=== PATIENT | female | born 2005 | race Caucasian/White ===

== ENCOUNTER 2025-08-23 | Outpatient (REF) | payer SELFPAY ==
--- OUTSIDE RECORDS SUMMARY | 2025-08-23 09:00 | XMS_ITS | Encounter Summary ---
Author Organization [employer] Address [address] [facility] 7t [place] [address] Care Team Providers Care Rampman Name Role Phone Mariaa Pena MD Primary Care Pro vider Reason for Visit * Reason Comments pap Encounter Details Date Type Department Care Team (Latest Contact Info) Description 08/23/2025 9:00 AM EDT Procedure Visit [facility] MED[facility]INE [address] [place], [place] [phone] Sangeeta Bueno CNM [address] [place] [address] Cervical cancer screening (Primary Dx); Encntr screen for infections w sexl mode of transmiss; Family planning counseling Social History Tobacco Use Types Packs/Day Years Used Date Smoking Tobacco: Never Passive Smoke Exposure: Never Smokeless Tobacco: Never Tobacco Cessation:Counseling Given: Not Answered Alcohol Use Standard Drinks/Week Comments Not Currently 0 (1 standard drink = 0.6 oz pur e alcohol) social Depression Answer Date Recorded Patient Health Questionnaire-9 Score 15 08/03/2025 Patient Health Questionnaire-9 Score 15 08/03/2025 Last PHQ-9: Questionnaire Data Not on file 1 Housing Stability Answer Date Recorded What is your housing situation today? I have katey bita 08/03/[address] you li ve. Do you have problems with any of the following? None of the above 08/03/2025 Food Insecurity Answer Date Recorded Within the past 12 months, y ou worried that your food would run out before you got money to buy more: Never True 08/03/2025 Within the past 12 months,th e food you bought just didn't last and you didn't have enough money to get more: Never True 06/2025 Utilities Answer Date Recorded In the past 12 months, has t he electric, gas, oil or water company threatened to shut off services in your home? No 08/03/2025 Depression Answer Date Recorded Patient Health Questionnaire-2 Score 4 08/03/2025 Internet Access Answer Date Recorded Internet Access Q1 Yes 08/03/2025 Internet Access Q2 Not on file 08/03/2025 Comments Unknown Intention Date Recorded No desire to become (finding) 1 Sex and Gender Information Value Date Recorded Sex Assigned at Female 08/02/2025 12:40 PM EDT Legal Sex Female 2:53 PM EDT Gender Identity Female 08/02/2025 12:40 PM EDT Sexual Orientation Straight 08/03/2025 2: 45 PM EDT documented as of this encounter Last Filed Vital Signs Vital Sign Reading Time Taken Comments Blood Pressure 128/80 08/23/2025 9:16 AM EDT Pulse 79 08/23/2025 9:16 AM EDT Temperature 36.7 C (98 F) 08/23/2025 9:16 AM EDT Respiratory Rate 16 08/23/2025 9:16 AM EDT Oxygen Saturation 98% 08/23/2025 9:16 AM EDT Inhaled Oxygen Concentration - - Weight 83.3 kg (183 lb 9.6 oz) 08/23/2025 9:16 A M EDT Height - - Body Mass Index 32.01 08/03/2025 2:21 PM EDT documented in this encounter Progress Notes * Sangeeta Bueno CNM - 08/23/2025 9:00 AM EDT Subjective Patient ID: Sharmila Ludwig is a 20 y.o. female who presents for pap Here for initial pap and control counseling. STI labs ordered by PCP. Never started oral contraceptive pill. Not planning in the next year, would like to discuss IUD. LMP 08/07. Last sexually active without a condom 7 days ago. 1 AMAB partner x 2y, no safety concerns. Monthly menses x 4-4d. Occasionally heavy, occasional cramps a day or so prior to menses. Responds to OTC meds, doesn't miss work or social events because of pain. Received HPV and HBV vaccine series. Review of Systems Genitourinary: Negative for dyspareunia, dysuria, frequency, genital sores, hematuria, menstrual problem, pelvic pain, urgency, vaginal bleeding, vaginal discharge and vaginal pain. No abnormal bleeding, no breast pain, no breast mass, no nipple discharge Objective BP 128/80 (BP Location: Left arm, Patient Position: Sitting, BP Cuff Size: Adult) Pulse 79 Temp98 ??F (36.7 ??C) (Oral) Resp 16 Wt 183 lb 9.6 oz (83.3 kg) LMP 08/07/2025 (Exact Date) SpO2 98% BMI 32.01 kg/m?? Physical Exam Manager Pharmacy present: declines contact center specialist. Constitutional: Appearance: Normal appearance. Genitourinary: General: Normal vulva. Labia: Right: No rash, tenderness, lesion or injury. Left: No rash, tenderness, lesion or injury. Vagina: Normal. No signs of injury and foreign body. No vaginal discharge, erythema, tenderness, bleeding or lesions. Cervix: No cervical motion tenderness, discharge, friability, lesion, erythema, cervical bleeding or eversion. Uterus: Normal. Not enlarged and not tender. Adnexa: Right adnexa normal and left adnexa normal. Right: No mass, tenderness or fullness. Left: No mass, tenderness or fullness. Neurological: Mental Status: She is alert. Psychiatric: Mood and Affect: Mood normal. Behavior: Behavior normal. Assessment/Plan Diagnoses and all orders for this visit: Cervical cancer screening - Pap Smear Initial pap today. Reviewed indications for screening and usual followup. Will contact with results. Repeat 3y if normal. Reviewed that minor cellular changes are common, and if these are noted, we will repeat pap in 1y. Encntr screen for infections w sexl mode of transmiss - STI testing add on (NG, CT, Trich) Pap based STI testing sent. Serum labs ordered by PCP. Advised to get at her convenience. Family planning counseling Reviewed IUD types, risks and benefits. She is interested in Liletta. Reviewed pre-insertion instructions. Use condoms or abstain from sex until appointment in 1-2 weeks. Declines other bridge method. We run a test at the time of insertion visit, so please be prepared to give a urine sample Take either 800mg (4 tablets of 200mg) of ibuprofen or 2 extra strenth Tylenol 1 hour before the appointment, with food. Please make sure you have eaten something before the appointment and that you are well hydrated. documented in this encounter Plan of Treatment Upcoming Encounters Date Type Department Care Team (Late st Contact Info) Description 09/05/2025 2:45 PM EST Procedure Visit [address] [phone] Sangeeta Bueno CNM [address] [place] [phone] 10/17/2025 9:00 AM EST Office Visit [address] [phone] Mariaa Pena MD [address] [place] [address] [phone] Scheduled Orders Name Type Priority Associated Diagnoses Orde r Schedule Pap Smear Pathology and Cytology Routine Cervical cancer screening Ordered: 08/23/2025 STI testing add on (NG, CT, Trich) Pathology and Cytology Routine Encntr screen for infections w sexl mode of transmiss Ordered: 08/23/2025 documented as of this encounter Visit Diagnoses Diagnosis Cervical cancer screening- Primary Screening for malignant neoplasm of the cervix Encntr screen for infections w sexl mode of transmiss Family planning counseling Other general counseling and advice for contraceptive management documented in this encounter Additional Health Concerns Assessment Noted Time PHQ-9 Depression Total Score: 15 025 2:27 PM EDT documented as of this encounter Care Teams Rampman Relationship Specialty Start Date End Date Mariaa Pena MD [address] [place] [address] [phone] PCP - General Internal Medicine 08/03/25 documented as of this encounter
--- OUTSIDE RECORDS SUMMARY | 2025-08-24 09:32 | XMS_ITS | Clinical Summary ---
Author Organization [employer] Address [address] [facility] 7t [place] [address] Care Team Providers Care Head Of Music Name Role Phone Mariaa Pena MD Primary Care Pro vider Allergies No known active allergies Medications * This document contains information received from the source organization and may not represent a complete record from that organization. albuterol 108 (90 Base) MCG/ACT inhalerIndications :Asthma, unspecified asthma severity, unspecified whether complicated, unspecified whether persistent Inhale 2 puffs every 4 (four) hours if needed for wheezing. 18 g 5 08/03/20 26 Active norethindrone (Micronor) 0.35 MG tabletIndications: Encounter for contraceptive management, unspecified type Take 1 tablet (0.35 mg) by mouth Once per day. 28 tablet 2 5 08/03/20 26 Active Active Problems Problem Noted Date Diagnosed Date Asthma, unspecified asthma s everity, unspecified whether complicated, unspecified whether persistent 08/03/2025 Class 1 obesity 08/03/2025 Marijuana use 08/03/2025 Encounters * This document contains information received from the source organization and may not represent a complete record from that organization. Date Type Department Care Team Description 08/23/2025 9:00 AM EDT Procedure Visit [facility] MED[facility]INE [address] [place] [address] Sangeeta Bueno CNM Cervical cancer screening (Primary Dx); Encntr screen for infections w sexl mode of transmiss; Family planning counseling 08/23/2025 Travel 08/16/2025 Travel 08/03/2025 1:45 PM EDT Office Visit [facility] MED[facility]INE [address] [place] [phone] Mariaa Pena MD Asthma, unspecified asthma severity, unspecified whether complicated, unspecified whether persistent (Primary Dx); Dietary counseling; Exercise counseling; Obesity (BMI 30-39.9); Annual physical exam; Encounter for contraceptive management, unspecified type; Encounter for immunization; Marijuana use 08/03/2025 Telephone [facility] [address] [place] [phone] Mariaa Pena MD Insurance 08/03/2025 Travel 08/02/[address] [address] Carlene Calloway [place] chart prep 08/02/[address] [phone] Mariaa Pena MD Insurance 07/27/2025 Patient Outreach [facility] [address] [place], [place] [phone] Mariaa Pena MD Pre-visit Planning (SDOH unable to reach LVM ) from Last 3 Months Immunizations Immunization Administration Dates Next Due DTaP 07/17/2009, 7,2004,2004, HPV, Unspecified 02/09/2017,02/07/2016 Hep A, ped/adol, 2 dose 07/08/2019,05/27/2018 Hep B, Unspecified 01/06/2005,2004, 004 Hib (PRP-T) 08/05/2005,2004,2004 ,2004 IPV 07/17/2009,11/05/2006,2004 ,2004 Influenza, IIV3, injectable 07/20/2017 MMR 07/17/2009,08/05/2005 Meningococcal C Conjugate 02/07/2016 Pneumococcal Conjugate PCV 20 08/03/2025 Pneumococcal Conjugate PCV 7 11/05/2006,04/15/20 05,2004,2004 Tdap 02/07/2016 Varicella 07/17/2009,04/15/2005 Family History Medical History Relation Name Comments Breast cancer Neg Hx Colon cancer Neg Hx Ovarian cancer Neg Hx Social History Tobacco Use Types Packs/Day Years [...] your housing situation today? I have katey sunshine 08/03/[address] you li [...] Orientation Straight 08/03/2025 2: 45 PM EDT Last Filed Vital Signs Vital Sign Reading [...] oz) 08/23/2025 9:16 A M EDT Height 161.3 cm (5' 3.5 ) 08/03/2025 2:21 PM EDT Body Mass Index 32.01 08/03/2025 2:21 PM EDT Plan of Treatment Upcoming Encounters Date Type Department Care Team (Late st Contact Info) Description 09/05/2025 2:45 PM EST Procedure Visit [facility] [address] [place] [address] [phone] Sangeeta Bueno CNM [address] [place], [place] [phone] 10/17/2025 9:00 AM EST Office Visit [address] [phone] Mariaa Pnea MD [address] [place], [place] [phone] Health Maintenance Due Date Last Done Comments Chlamydia and Gonorrhea Screening 2004 HIV Screening 2004 Lipid Panel 2004 SDOH Screening 2004 Meningococcal B Vaccine (1 of 2 - Standard) 2020 Hepatitis C Screening 02/11/2022 Pap Smear 02/11/2025 COVID-19 Vaccine ( - season) 2025 Influenza Vaccine (#1) 2025 07/20/2017 Depression Monitoring 02/01/2026 08/03/2025, 025 DTaP/Tdap/Td Vaccines (7 - Td or Tdap) 02/06/2026 02/07/2016, 07/17/2009, 11/05/2006, Additional history exists Alcohol/Substance Use Screening 08/03/2026 08/03/2025 Disability Screening 08/16/2026 08/16/2025 Family Planning (PISQ) 08/23/2026 08/23/2025 Tobacco Screening 08/23/2026 08/23/2025 Zoster Vaccines (1 of 2) 02/11/2054 RSV Patients and Patients Aged 60 years or older (1 - 1-dose 75+ series) 02/11/2079 Hepatitis B Vaccines Completed 01/06/2005, 2004, 2004 HIB Vaccines Completed 08/05/2005, 09/25, 2004, Additional history exists IPV Vaccines Completed 07/17/2009, 10/26, 2004, Additional history exists HPV Vaccines Completed 02/09/2017, 02/07/2016 Hepatitis A Vaccines Completed 07/08/2019, 05/27/20 18 Pneumococcal Vaccine: Pediatrics (0 to 5 Years) and At-Risk Patients (6 to 49) Years Completed 08/03/2025, 11/05/2006, 04/15/2005, Additional history exists Meningococcal Vaccine Aged Out No yassine ria eligible based on patient's age to complete this topic RSV under 20 months Aged Out No longe r eligible based on patient's age to complete this topic Rotavirus Vaccines Aged Out No longer eligible based on patient's age to complete this topic Procedures Procedure Name Priority Date/Time Associated Diagnosis Comments POCT , URINE Routine 08/03/2025 3:09 PM EDT Encounter for contraceptive management, unspecified type from Last 3 Months Results * POCT Urine (08/03/2025 3:09 PM EDT) Preg Test, Ur Negative Negative, Indeterminate, None Detected, Invalid, Specimen unsatisfactory for evaluation, Weakly Positive, 2+ QC Media Lot # .[id number] Lot# Expiration Date [id number] Urine 08/03/2025 3:09 PM EDT Mariaa Huggins MD POINT OF CARE MARIMAR T ENTER/EDIT ORDERABLES Final Result from Last [address] [address] [address] [place] [phone] Care Teams Head Of Music Relationship Specialty Start Date End Date Mariaa Pena MD [address] [place] [phone] PCP - General Internal Medicine 08/03/25
--- OUTSIDE RECORDS SUMMARY | 2025-08-24 09:32 | XMS_ITS | Encounter Summary ---
Author Organization [employer] Address [address] [facility] 7t [place] [address] Care Team Providers Care Malt House Operator Name Role Phone Mariaa Pena MD Primary Care Pro vider Encounter Details Date Type Department Care Team (Latest Contact Info) Description 08/23/2025 Travel Social History Tobacco Use Types Packs/Day Years Used Date Smoking Tobacco: Never Passive Smoke Exposure: Never Smokeless Tobacco: Never Alcohol Use Standard Drinks/Week Comments Not Currently [...] Q2 Not on file 08/03/2025 Comments Unknown Sex and Gender Information Value Date Recorded Sex Assigned at Female 08/02/2025 12:40 PM EDT Legal Sex Female 2:53 PM EDT Gender Identity Female 08/02/2025 12:40 PM EDT Sexual Orientation Straight 08/03/2025 2: 45 PM EDT documented as of this encounter Plan of Treatment Upcoming Encounters Date Type Department Care Team (Late st Contact Info) Description 09/05/2025 2:45 PM EST Procedure Visit [facility] [address] [place] [phone] Sangeeta Bueno CNM [address] [place] [address] 10/17/2025 9:00 AM EST Office Visit [address] [address] Mariaa Pena MD [address] [place] [address] [phone] documented as of this encounter Visit Diagnoses Not on filedocumented in this encounter Additional Health Concerns Assessment Noted Time PHQ-9 Depression Total Score: 15 025 2:27 PM EDT documented as of this encounter Care Teams Malt House Operator Relationship Specialty Start Date End Date Mariaa Pena MD [address] [place] [address] [phone] PCP - General Internal Medicine 08/03/25 documented as of this encounter
[2025-08-28 17:18] LABS: Trichomonas (NAAT) NOT DETECTED (NOT DETECTED)
[2025-08-28 20:33] LABS: C. trachomatis RNA TMA DETECTED (NOT DETECTED); N. gonorrhoeae RNA TMA NOT DETECTED (NOT DETECTED)
== END 2025-08-23 00:01 | disposition home or self-care (01) ==
LOC: HO.HHCLNP
PROVIDERS: Visit Provider Advanced Practice Midwife
DX: Z12.4 Encounter for screening for malignant neoplasm of cervix (principal); Z20.2 Contact with and (suspected) exposure to infections with a predominantly sexual mode of transmission
CPT/HCPCS: 87491; 87591; 87661; 88175

== ENCOUNTER 2025-10-03 13:36 | Outpatient (REF) | payer OTHER, SELFPAY ==
[2025-10-03 16:19] LABS: MANUAL DIFF FLAG NO
[2025-10-03 16:31] LABS: Hematocrit 46.2 % (37.0-47.0); Hemoglobin 15.1 g/dl (12.0-16.0); Imm Gran Abs Auto 0.02 X10*3/uL (0.00-0.03); Imm Gran Pct Auto 0.2 % (0.0-0.4); Lymphocytes Absolute Auto 2.4 X10*3/uL (1.2-4.9); Mean Corpuscular HGB Conc 32.7 g/dl (31.0-35.0); Mean Corpuscular Hemoglobin 28.4 pg (27.0-33.0); Mean Corpuscular Volume 87.0 fL (80.0-98.0); NRBC Abs Auto 0.000 X10*3/uL (0.0-0.012); NRBC Pct Auto 0.0 /100WBC (0.0-0.2); Platelet Count 235 X10*3/uL (160-400); Red Blood Count 5.31 X10*6/uL (4.20-5.50); White Blood Count 8.9 X10*3/uL (4.8-10.8)
[2025-10-03 18:04] LABS: Alanine Aminotransferase 14 U/L (0-31); Albumin Level 4.7 g/dL (3.5-5.0); Alkaline Phosphatase 65 U/L (39-117); Anion Gap 8 (12-20); Aspartate Amino Transferase 21 U/L (5-31); Blood Urea Nitrogen 14 mg/dL (9-16); Calcium 9.5 mg/dL (8.4-10.2); Carbon Dioxide 29 mmol/L (22-29); Chloride 108 mmol/L (96-108); Cholesterol 154 mg/dL (<200); Estimated Glomerular Filt Rate > 60; HDL Cholesterol 54 mg/dL (>40); Potassium 4.2 mmol/L (3.3-5.1); Sodium 141 mmol/L (135-145); Total Protein 7.2 g/dL (6.5-8.0); Triglycerides 64 mg/dL (<150)
[2025-10-04 05:59] LABS: HBS Num1 0.00 mIU/mL (0-7.99); HBc Num1 0.09 S/CO (0.00-0.79); HBsAGNum1 0.38 S/CO (0.00-0.99); HIV Num 1 0.06 S/CO (0.00-0.99); Hepatitis B Surface Antigen Negative (Negative); ~HepC Num1 0.08 S/CO (0.00-0.79); ~Hepatitis B Surface Antibody NONREACTIVE (Nonreactive); ~Hepatitis C Antibody Nonreactive (Nonreactive)
[2025-10-04 06:10] LABS: Syphilis Screen Nonreactive (Nonreactive)
== END 2025-10-03 13:37 | disposition home or self-care (01) ==
LOC: HO.HHCL 13:36
PROVIDERS: PCP Student in an Organized Health Care Education/Training Program; Referring Provider Advanced Practice Midwife; Visit Provider Student in an Organized Health Care Education/Training Program
DX: Z00.00 Encounter for general adult medical examination without abnormal findings (principal); Z11.4 Encounter for screening for human immunodeficiency virus [HIV]; Z11.59 Encounter for screening for other viral diseases
CPT/HCPCS: 36415; 80053; 80061; 82306; 83036; 84443; 85025; 86704; 86706; 86780; 86803; 87340; 87389

== ENCOUNTER 2025-10-17 13:39 | Outpatient (REF) | payer OTHER, SELFPAY ==
--- OUTSIDE RECORDS SUMMARY | 2025-10-17 09:00 | XMS_ITS | Encounter Summary ---
Author Organization [employer] Address [address] [facility] 7 [place] [address] Care Team Providers Care Bridge Crane Operator Name Role Phone Mariaa Pena MD Primary Care Pro vider Reason for Visit * Reason Comments Follow-up Encounter Details Date Type Department Care Team ([facility] st Contact Info) Description 10/17/2025 9:00 AM EST Office Visit [facility] MEDICINE [address] [place] [address] Mariaa Pena MD [address] [place] [address] Encounter for immunization; Amenorrhea Social History Tobacco Use Types Packs/Day Years Used Date Smoking Tobacco: Never Passive Smoke Exposure: Never Smokeless Tobacco: Never Alcohol Use Standard Drinks/Week Comments Not Currently 0 (1 standard drink = 0.6 oz pur e alcohol) social Alcohol Answer Date Recorded How often do you have a drink containing alcohol ? 0 10/17/2025 How many drinks containing a lcohol do you have on a typical day when you are drinking? 0 10/17/2025 How often do you have six or more drinks on one occasion? 0 10/17/2025 Depression Answer Date Recorded Patient Health Questionnaire-9 Score 6 10/17/2025 Patient Health Questionnaire-9 Score 6 10/17/2025 Last PHQ-9: Questionnaire Data Not on file 1 12/18/2024 Housing Stability Answer Date Recorded What is [...] money to get more: Never True 06/2025 Transportation Answer Date Recorded In the past 12 months, has l ack of transportation kept you from medical appts, meetings, work or from getting things needed for daily living? No 10/17/2025 Utilities Answer Date Recorded In the past 12 months, has t he electric, gas, oil or water company threatened to shut off services in your home? No 08/03/2025 Depression Answer Date Recorded Patient Health Questionnaire-2 Score 2 10/17/2025 Internet Access Answer Date Recorded Internet Access Q1 Yes 08/03/2025 Internet Access Q2 Not on file 08/03/2025 Comments No Sex and Gender Information Value Date Recorded Sex Assigned at Female 08/02/2025 12:40 PM EDT Legal Sex Female 2:53 PM EDT Gender Identity Female 08/02/2025 12:40 PM EDT Sexual Orientation Straight 08/03/2025 2: 45 PM EDT documented as of this encounter Last Filed Vital Signs Vital Sign Reading Time Taken Comments Blood Pressure 120/70 10/17/2025 9:19 AM EST Pulse 90 10/17/2025 9:19 AM EST Temperature 36.4 C (97.5 F) 10/17/2025 9:19 AM EST Respiratory Rate 20 10/17/2025 9:19 AM EST Oxygen Saturation 99% 10/17/2025 9:19 AM EST Inhaled Oxygen Concentration - - Weight 85 kg (187 lb 6.4 oz) 10/17/2025 9:19 AM EST Height 160 cm (5' 3 ) 10/17/2025 9:19 AM EST Body Mass Index 33.2 10/17/2025 9:19 AM EST documented in this encounter Plan of Treatment Upcoming Encounters Date Type Department Care Team (Late st Contact Info) Description 11/17/2025 3:00 PM EST Nutrition [facility] DIABETES/NUTRITION [address] [place], [place] [phone] [address] [place] [address] 01/17/2026 9:00 AM EDT Office Visit [facility] MEDICINE [address] [place], [place] [phone] Mariaa Pena MD [address] [place] [address] [phone] documented as of this encounter Procedures Procedure Name Priority Date/Time Associated Diagnosis Comments POCT , URINE Routine 10/17/2025 10:29 AM EST Amenorrhea documented in this encounter Results * POCT Urine (10/17/2025 10:29 AM EST) Preg Test, Ur Negative Negative, Indeterminate, None Detected, Trace, 3+, Specimen unsatisfactory for evaluation, Weakly Positive, 1+, 2+ QC Media Lot # [id number] Lot# Expiration Date [id number] Urine 10/17/2025 10:2 9 AM EST Mariaa Huggins MD POINT OF CARE MARIMAR T ENTER/EDIT ORDERABLES Final Result documented in this encounter Visit Diagnoses Diagnosis Encounter for immunization Amenorrhea Absence of menstruation documented in this encounter Additional Health Concerns Assessment Noted Time PHQ-9 Depression Total Score: 6 10/17/20 2:30 PM EST documented as of this encounter Care Teams Bridge Crane Operator Relationship Specialty Start Date End Date Mariaa Pena MD [address] [place] [address] [phone] PCP - General Internal Medicine 08/03/25 documented as of this encounter
--- OUTSIDE RECORDS SUMMARY | 2025-10-17 14:49 | XMS_ITS | Encounter Summary ---
Author Organization [employer] Address [address] [facility] 7 [place] [address] Care Team Providers Care Rn Research Name Role Phone Mariaa Pena MD Primary Care Pro vider Reason for Visit * Reason Onset Date Comments chart prep 10/16/2025 Encounter Details Date Type Department Care Team (Late st Contact Info) Description 10/16/2025 Telephone [facility] MEDICINE [address] [place] [address] Mariaa Pena MD [address] [place] [phone] chart prep Social History Tobacco Use Types Packs/Day Years [...] the past 12 months, has t he [place], gas, oil or water company threatened to [...] PM EDT documented as of this encounter Miscellaneous Notes * Telephone Encounter - Carlene Calloway [place] - 10/16/2025 9:01 AM EST Chart Prep Labs: done Images: not applicable Screenings: Not Applicable Vaccines due: Covid Due, Flu Due, and MCV4 Due Referrals: Nutrition Pending appointment on 11/17/25 at 3 PM Overdue care gaps: SDOH documented in this encounter Plan of Treatment Upcoming Encounters Date Type Department Care Team (Late st Contact Info) Description 11/17/2025 3:00 PM EST Nutrition [facility] DIABETES/NUTRITION [address] [place] [address] [place] [address] 01/17/2026 9:00 AM EDT Office Visit [facility] MEDICINE [address] [place], [place] [phone] Mariaa Pena MD 230 [place] [address] documented as of this encounter Visit Diagnoses Not on filedocumented in this encounter Additional Health Concerns Assessment Noted Time PHQ-9 Depression Total Score: 15 025 2:27 PM EDT documented as of this encounter Care Teams Rn Research Relationship Specialty Start Date End Date Mariaa Pena MD [address] [place], [place] [phone] PCP - General Internal Medicine 08/03/25 documented as of this encounter
--- OUTSIDE RECORDS SUMMARY | 2025-10-17 14:49 | XMS_ITS | Clinical Summary ---
Author Organization [employer] Address [address] [facility] [address] [place] [address] Care Team Providers Care Operations And Maintenance Specialist Name Role Phone Mariaa Pena MD Primary Care Pro vider Allergies No known active allergies Medications * This document contains information received from the source organization and may not represent a complete record from that organization. albuterol 108 (90 Base) MCG/ACT inhalerIndication s:Asthma, unspecified asthma severity, unspecified whether complicated, unspecified whether persistent Inhale 2 puffs every 4 (four) hours if needed for wheezing. 18 g 5 08/03/20 26 Active norethindrone (Micronor) 0.35 MG tabletIndications :Encounter for contraceptive management, unspecified type Take 1 tablet (0.35 mg) by mouth Once per day. 28 tablet 2 5 08/03/20 26 Active cholecalciferol (Vitamin D-3) 50 MCG (2000 UT) capsule Take 1 capsule (50 mcg) by mouth Once per day. 90 capsule 1 5 Active azithromycin (Zithromax) 500 MG tablet Take both tablets at the same time. (1000mg) 2 tablet 5 10/17/20 25 Discontinu ed(Other) Active Problems Problem Noted Date Diagnosed Date ZACK (generalized anxiety disorder) 10/17/2025 Asthma, unspecified asthma s everity, unspecified whether complicated, unspecified whether persistent 08/03/2025 Class 1 obesity 08/03/2025 Marijuana use 08/03/2025 Encounters * This document contains information received from the source organization and may not represent a complete record from that organization. Date Type Department Care Team Description 10/17/2025 9:00 AM EST Office Visit [facility] [place] [address] Mariaa Pena MD Encounter for immunization; Amenorrhea 10/17/2025 Travel 10/16/2025 Travel 10/16/[address] [facility] [place] [address] Mariaa Pena MD chart prep 10/04/[address] [address] Mariaa Pena MD Appointment Confirmation 10/04/2025 Telephone [facility] [place] [address] Najma Hu DC 10/03/2025 Results Follow-Up [address] [address] Mariaa Pena MD CBC auto differential, Comprehensive Metabolic Panel, Hemoglobin A1c, Additional followed-up results: 3 09/28/2025 Travel 08/29/2025 Orders Only [address] [address] Angelita Aguirre CNM Encntr screen for infections w sexl mode of transmiss (Primary Dx) 08/29/2025 Orders Only [address] [address] Angelita Aguirre CNM 08/29/2025 Results Follow-Up [address] [address] Angelita Aguirre CNM STI testing add on (NG, CT, Trich), Pap Smear 08/23/2025 9:00 AM EDT Procedure Visit [address] [address] Angelita Aguirre CNM Cervical cancer screening (Primary Dx); Encntr screen for infections w sexl mode of transmiss; Family planning counseling 08/23/2025 Travel 08/16/2025 Travel 08/03/2025 1:45 PM EDT Office Visit [address] [place] [address] Mariaa Pena MD Asthma, unspecified asthma severity, unspecified whether complicated, unspecified whether persistent (Primary Dx); Dietary counseling; Exercise counseling; Obesity (BMI 30-39.9); Annual physical exam; Encounter for contraceptive management, unspecified type; Encounter for immunization; Marijuana use 08/03/2025 Telephone [facility] [address] [place] [phone] Mariaa Pena MD Insurance 08/03/2025 Travel 08/02/[address] [address] Carlene Calloway [place] chart prep 08/02/[address] [address] Mariaa Pena MD Insurance 07/27/2025 Patient Outreach [facility] [address] [place], [place] [phone] Mariaa Pena MD Pre-visit Planning ([facility] unable to reach LVM ) from Last 3 Months Immunizations Immunization Administration Dates Next Due DTaP 07/17/2009, 7,2004,07/08,2004 HPV, Unspecified 02/09/2017,02/07/2016 Hep A, ped/adol, 2 dose 07/08/2019,05/27/2018 Hep B, Unspecified 01/06/2005,2004, 004 Hib (PRP-T) 08/05/2005, 4,2004,05/02 IPV 07/17/2009, 7,2004,05/02 Influenza, IIV3, injectable 07/20/2017 Influenza, seasonal, injecta ble, preservative free 10/17/2025 MMR 07/17/2009,08/05/2005 Meningococcal C Conjugate 02/07/2016 Pfizer Covid-19 Vaccine 12+ 10/17/2025 Pneumococcal Conjugate PCV 20 08/03/2025 Pneumococcal Conjugate PCV 7 11/05/2006, 04/15/2005,2004,05/02 Tdap 02/07/2016 Varicella 07/17/2009,04/15/2005 Family History Medical [...] is your housing situation today? I have kateyfaisal sunshine 08/03/[address] you [...] Q2 Not on file 08/03/2025 Comments No Intention Date Recorded No desire to become [...] Mass Index 33.2 10/17/2025 9:19 AM EST Plan of Treatment Upcoming Encounters Date Type Department Care Team (Late st Contact Info) Description 11/17/2025 3:00 PM EST Nutrition [facility] DI[facility]ET[facility]/NUTRITION [address] [place] [phone] Zita Reese, ANNA [address] [place] [address] 01/17/2026 9:00 AM EDT Office Visit [facility] [address] [place] [phone] Mariaa Pena MD [address] [place], [place] [phone] Health Maintenance Due Date Last Done Comments Meningococcal B Vaccine (1 of 2 - Standard) 2020 Depression Monitoring 02/01/2026 08/03/2025, 025 DTaP/Tdap/Td Vaccines (7 - Td or Tdap) 02/06/2026 02/07/2016, 07/17/2009, 11/05/2006, Additional history exists Alcohol/Substance Use Screening 08/03/2026 08/03/2025 Chlamydia and Gonorrhea Screening 08/23/2026 08/23/2025 Family Planning (PISQ) 08/23/2026 08/23/2025 Disability Screening 10/16/2026 10/16/2025 SDOH Screening 10/17/2026 10/17/2025 Tobacco Screening 10/17/2026 10/17/2025 Pap Smear 08/23/2028 08/23/2025 Lipid Panel 10/03/2030 10/03/2025 Zoster Vaccines (1 of 2) 02/11/2054 RSV [...] Completed 08/03/2025, 11/05/2006, 04/15/2005, Additional history exists HIV Screening Completed 10/03/2025 Hepatitis C Screening Completed 10/03/2025 COVID-19 Vaccine Completed 10/17/2025 Influenza Vaccine Completed 10/17/2025, 07/20/2017 Meningococcal Vaccine Aged Out No yassine ria [...] URINE Routine 10/17/2025 10:29 AM EST Amenorrhea VITAMIN D,25-OH,TOTAL,IA Routine 10/03/2025 1:44 PM EST Annual physical exam TSH W/REFLEX TO FT4 Routine 10/03/2025 1 :44 PM EST Annual physical exam SYPHILIS SCREEN Routine 10/03/2025 1:44 PM EST Annual physical exam LIPID PANEL, STANDARD Routine 10/03/2025 1:44 PM EST Annual physical exam HIV 1/2 ANTIGEN/ANTIBODY, FOURTH GENERATION W/RFL Routine 10/03/2025 1:44 PM EST Annual physical exam HEPATITIS C AB W/REFL TO HCV RNA, QN, PCR Routine 10/03/2025 1:44 PM EST Annual physical exam HEPATITIS B SURFACE ANTIGEN, EIA Routine 10/03/2025 1:44 PM EST Annual physical exam HEPATITIS B SURFACE ANTIBODY, QUALITATIVE Routine 10/03/2025 1:44 PM EST Annual physical exam HEPATITIS B CORE AB TOTAL Routine 10/03/2025 1:44 PM EST Annual physical exam HEMOGLOBIN A1C Routine 10/03/2025 1:44 PM EST Annual physical exam COMPREHENSIVE METABOLIC PANEL Routine 10/03/2025 1:44 PM EST Annual physical exam CBC WITH AUTO DIFFERENTIAL Routine 10/03/2025 1:44 PM EST Annual physical exam CHLAMYDIA/N. GONORRHOEAE AND T. VAGINALIS RNA, QUAL,TMA Routine 08/23/2025 9:45 AM EDT Encntr screen for infections w sexl mode of transmiss PAP SMEAR Routine 08/23/2025 9:45 AM EDT Cervical cancer screening POCT , URINE Routine 08/03/2025 3:09 PM EDT Encounter for contraceptive management, unspecified type from Last 3 Months Results * POCT Urine (10/17/2025 10:29 AM EST) Only the most recent of2 resultswithin the time period is included. Preg Test, Ur Negative Negative, Indeterminate, None Detected, Trace, 3+, Specimen unsatisfactory for evaluation, Weakly Positive, 1+, 2+ QC Media Lot # [id number] Lot# Expiration Date [id number] Urine 10/17/2025 10:2 9 AM EST Mariaa Huggins MD POINT OF CARE MARIMAR T ENTER/EDIT ORDERABLES Final Result * Syphilis Screen (10/03/2025 1:44 PM EST) Syphilis Screen Nonreactive Nonreactive [facility] Blood 10/03/2025 1:44 PM EST 10/03/2025 4:14 PM EST Mariaa Huggins MD LAB BLOOD ORDERAB LES Final Result [facility] [address] [place] [phone] * (ABNORMAL) Vitamin D, 25-Hydroxy, Total, Immunoassay (10/03/2025 1:44 PM EST) Vitamin D 25-OH Total 13.0(L) >30 ng/mL [facility] Comment: Health Based Reference Values*< 20 ng/mL Pafomsrml83-31 ng/mL Insufficient> 30 ng/mL Sufficient*Sheree SHORE. N Engl J Med. 2007;357:266-280There is no well-established upper level of normal vitamin Dlevels. Some laboratories use 50 ng/mL as an upper limit ofnormal. However, toxicity is patient-dependent and may occurat any level. Careful correlation with the patient'spresentation is necessary and, if there is concern forvitamin D toxicity, treatment should be consideredirrespective of the serum level.Care must be taken in interpreting Vitamin D results fromdifferent laboratories and methodologies. Published datademonstrated that results from patients undergoinghemodialysis may show a negative bias when tested withvarious automated 25-OH vitamin D assays when compared toLC-MS/MS.When testing samples from patients whose predominant form ofVitamin D is Vitamin D2, such as patients receiving VitaminD2 supplementation, results that are subtherapeutic shouldbe confirmed with another method such as LC-MS/MS. Blood Venous blood specimen / Unknown 10/03/2025 1:44 PM EST 10/03/2025 4:14 PM EST Mariaa Huggins MD LAB BLOOD ORDERAB LES Final Result Performing Organization Address City/[facility]/ZIP Co de Phone Number [facility] [address] [place] [phone] * TSH with Reflex to Free T4 (10/03/2025 1:44 PM EST) Pathologist [facility] TSH reflex Free T4 0.53 0.32 - 4.0 uIU/mL [facility] Blood 10/03/2025 1:44 PM EST 10/03/2025 4:14 PM EST us Mariaa Huggins MD LAB BLOOD ORDERAB LES Final Result Performing Organization Address City/[facility]/ZIP Co de Phone Number [facility] [address] [place] [phone] * CBC auto differential (10/03/2025 1:44 PM EST) Pathologist [facility] White Blood Count 8.9 4.8 - 10.8 X10*3/uL [facility] Red Blood Count 5.31 4.20 - 5.50 X10*6/uL [facility] Hemoglobin 15.1 12.0 - 16.0 g/dl [facility] Hematocrit 46.2 37.0 - 47.0 % [facility] Mean Corpuscular Volume 87.0 80.0 - 98.0 fL [facility] Mean Corpuscular Hemoglobin 28.4 27.0 - 33.0 pg [facility] Mean Corpuscular HGB Conc 32.7 31.0 - 35.0 g/dl [facility] Red Cell Distribution Width 12.5 11.0 - 16.0 % [facility] Platelet Count 235 160 - 400 X10*3/uL [facility] Mean Platelet Volume 11.2 9.4 - 12.3 fL [facility] Neutrophils Percent Auto 63.1 45 - 73 % [facility] Imm Gran Pct Auto 0.2 0.0 - 0.4 % [facility] Lymphocytes Percent Auto 26.7 20 - 40 % [facility] Monocytes Percent Auto 7.3 2 - 11 % [facility] Eosinophils Percent Auto 2.1 0 - 4 % [facility] Basophils Percent Auto 0.6 0 - 2 % [facility] NRBC Pct Auto 0.0 0.0 - 0.2 /100WBC [facility] Neutrophils Absolute Auto 5.6 2.0 - 8.3 x10*3/uL [facility] Imm Gran Abs Auto 0.02 0.00 - 0.03 X10*3/uL [facility] Lymphocytes Absolute Auto 2.4 1.2 - 4.9 X10*3/uL [facility] Monocytes Absolute Auto 0.7 0.1 - 1.2 X10*3/uL [facility] Eosinophils Absolute Auto 0.2 0.0 - 0.4 X10*3/uL [facility] Basophils Absolute Auto 0.1 0.0 - 0.2 X10*3/uL [facility] NRBC Abs Auto 0.000 0.0 - 0.012 X10*3/uL [facility] Blood Venous blood specimen / Unknown 10/03/2025 1:44 PM EST 10/03/2025 4:14 PM EST us Mariaa Huggins MD LAB BLOOD ORDERAB LES Final Result [facility] [address] [place] [phone] * Hepatitis C Antibody with Reflex to HCV, RNA, Quantitative, Real-Time PCR (10/03/2025 1:44 PM EST) Hepatitis C Antibody Nonreactive Nonreactive [facility] Comment:Antibodies to HCV no t detected; does not exclude early acuteHCV infection. Blood Venous blood specimen / Unknown 10/03/2025 1:44 PM EST 10/03/2025 4:14 PM EST us Mariaa Huggins MD LAB BLOOD ORDERAB LES Final Result Performing Organization Address [facility]/ZIP Co de Phone Number [facility] [address] [place] [phone] * Hepatitis B surface antigen, EIA (10/03/2025 1:44 PM EST) Hepatitis B Surface Ag Negative Negative [facility] Blood Venous blood specimen / Unknown 10/03/2025 1:44 PM EST 10/03/2025 4:14 PM EST us Mariaa Huggins MD LAB BLOOD ORDERAB LES Final Result Performing Organization Address [facility] Co de Phone Number [facility] [address] [place] [phone] * Hepatitis B Core Antibody, Total (10/03/2025 1:44 PM EST) Hepatitis B Core Antibody Nonreactive Nonreactive [facility] Blood Venous blood specimen / Unknown 10/03/2025 1:44 PM EST 10/03/2025 4:14 PM EST Mariaa Huggins MD LAB BLOOD ORDERAB LES Final Result Performing Organization Address [facility] Co de Phone Number [facility] [address] [place] [phone] * HIV-1/2 Antigen and Antibodies, Fourth Generation, with Reflexes (10/03/2025 1:44 PM EST) HIV AB/AG Nonreactive Nonreactive [facility] Comment:HIV-1 p24 Ag and/or HIV-1/HIV-2 Ab not detected.A test result that is nonreactive does not exclude thepossibility of exposure to or infection with HIV-1 and/orHIV-2. Nonreactive results in this assay for individualswith prior exposure to HIV-1 and/or HIV-2 may be due toantigen and antibody levels that are below the limit ofdetection of this assay.The [employer] HIV Ag/Ab Combo assay result andsupplemental assay results should be interpreted inconjunction with the patient's clinical presentation,history and other laboratory results. If the results areinconsistent with clinical evidence, additional testing issuggested to confirm the result. Blood Venous blood specimen / Unknown 10/03/2025 1:44 PM EST 10/03/2025 4:14 PM EST Mariaa Huggins MD LAB BLOOD ORDERAB LES Final Result Performing Organization Address City/[facility]/ZIP Co de Phone Number [facility] [address] [place] [phone] * Hepatitis B Surface Antibody, Qualitative (10/03/2025 1:44 PM EST) Pathologist [facility] ~Hepatitis B Surface Antibody NONREACTIVE Nonreactive [facility] Comment:Nonreactive: < 8.00 mIU/mL Blood Venous blood specimen / Unknown 10/03/2025 1:44 PM EST 10/03/2025 4:14 PM EST Mariaa Huggins MD LAB BLOOD ORDERAB LES Final Result Performing Organization Address City/[facility]/ZIP Co de Phone Number [facility] [address] [place] [phone] * Hemoglobin A1c (10/03/2025 1:44 PM EST) Hemoglobin A1c 5.3 <6.0 % [facility] Comment:Hemoglobin A1C Refer ence Range Adults: 4.8 - 6.0 % Non diabetic: < 6.0 % Goal: < 7.0 %Additional Action Suggested: > 8.0 %Note: Hemoglobin A1c results are invalid for patients with abnormal amounts of HbF. Blood transfusions may impact the HbA1c concentration in the patient sample. Estimated Average Glucose 105 mg/dL [facility] Comment:eAG = Estimated ave rage glucose which is %A1C expressed asaverage glucose, using the formula of the K3E-RxiaerdQsivuis Glucose study (ADAG), Diabetes Care, Vol.31,#8,2007 Blood Venous blood specimen / Unknown 10/03/2025 1:44 PM EST 10/03/2025 4:14 PM EST us Mariaa Huggins MD LAB BLOOD ORDERAB LES Final Result [facility] [address] [place] [phone] * Lipid Panel, Standard (10/03/2025 1:44 PM EST) Triglycerides 64 <150 mg/dL [facility] Comment:Desirable Triglyceri de: less than 150 mg/dLBorderline High Triglyceride 150-199 mg/dLHigh Triglyceride: 200-499 mg/dLVery High Triglyceride: greater than or equal to 5OO mg/dL Cholesterol 154 <200 mg/dL [facility] Comment:Desirable Cholestero l: less than 200 mg/dLBorderline High Cholesterol: 200-239 mg/dLHigh Cholesterol: greater than 239 mg/dL LDL Cholesterol Calculated 88 <100 mg/dL [facility] Comment:Desirable LDL: less than 100 mg/dLNear Optimal/Above Optimal LDL: 110- 129 mg/dLBorderline High LDL: 130-159 mg/dLHigh LDL: 160-189 mg/dLVery High LDL: greater than or equal to 190 mg/dL HDL Cholesterol 54 >40 mg/dL [facility] Comment:Desirable HDL: great er than 40 mg/dL Note: This HDL assay may give artificially low results in patients with liver disease. Blood Venous blood specimen / Unknown 10/03/2025 1:44 PM EST 10/03/2025 4:14 PM EST us Mariaa Huggins MD LAB BLOOD ORDERAB LES Final Result Performing Organization Address City/[facility]/ZIP Co de Phone Number [facility] [address] [place], [place] [phone] * (ABNORMAL) Comprehensive Metabolic Panel (10/03/2025 1:44 PM EST) Sodium 141 135 - 145 mmol/L [facility] Potassium 4.2 3.3 - 5.1 mmol/L [facility] Chloride 108 96 - 108 mmol/L [facility] Carbon Dioxide 29 22 - 29 mmol/L [facility] Anion Gap 8(L) 12 - 20 [facility] Urea Nitrogen (BUN) 14 9 - 16 mg/dL [facility] Creatinine, Serum 0.64 0.5 - 1.4 mg/dL [facility] Estimated Glomerular Filt Rate >60 [facility] Comment:Chronic Kidney Disea se: Estimated GFR < 60 mL/min/1.97q2Mgbsou Kidney Disease: Estimated GFR < 15 mL/min/1.73m2 Glucose 86 60 - 115 mg/dL [facility] Calcium 9.5 8.4 - 10.2 mg/dL [facility] Bilirubin, Total 0.3 0.0 - 1.0 mg/dL [facility] Aspartate Amino Transferase 21 5 - 31 U/L [facility] Alanine Aminotransferase 14 0 - 31 U/L [facility] Total Protein 7.2 6.5 - 8.0 g/dL [facility] Albumin Level 4.7 3.5 - 5.0 g/dL [facility] Alkaline Phosphatase 65 39 - 117 U/L [facility] Blood Venous blood specimen / Unknown 10/03/2025 1:44 PM EST 10/03/2025 4:14 PM EST us Mariaa Huggins MD LAB BLOOD ORDERAB LES Final Result [facility] [address] [place] [phone] * (ABNORMAL) STI testing add on (NG, CT, Trich) (08/23/2025 9:45 AM EDT) Trichomonas (NAAT) NOT DETECTED NOT DETECTED [facility] Comment:The analytical perfo rmance characteristics of thisassay have been determined by [employer]. Themodifications have not been cleared or approved bythe FDA. This assay has been validated pursuant to theIA regulations and is used for clinical purposes.For additional information, please refer tohttp://education.[employer]/faq/Trichomonastma(This link is being provided for information/educational purposes only.)THIS TEST WAS PERFORMED AT:[employer] [place] [phone] TIMMONS MD CTNG Ref Lab DETECTED(A ) NOT DETECTED [facility] Comment:If results do not co rrelate with clinical findings,testing using an alternate molecular target whichamplifies different genetic sequences can beperformed on the same sample for result confirmationwithin 7 days of sample receipt or per performinglaboratory specimen retention policy. Alternatetarget testing is available; 80238 (C. trachomatis)or 45453 (N. gonorrhoeae). NG Ref Lab NOT DETECTED NOT DETECTED [facility] ThinPrep vial Cervix uteri structure / Unknown 08/23/2025 9:45 AM EDT 08/24/2025 8:07 AM EDT Narrative [facility] - 08/28/2025 8:33 PM EST Collection Date: [id number] by: NAJMA Rosenthal: Cervix us Angelita DUKES LAB CYTOLOGY ORDERABLES F inal Result [facility] [address] [place] [phone] * Pap Smear (08/23/2025 9:45 AM EDT) Swab Cervix uteri structure / Unknown 08/23/2025 9:45 AM EDT 08/24/2025 8:07 AM EDT [facility] - 08/30/2025 1:16 PM EST ----- ------- Name: Sharmila Ludwig Age/Sex: 20/F : 2005 Unit#: [id number] Attend Dr: ANGELITA AGUIRRE CNM Re08/23/25 Status: [facility] Disch: ----- ------- SPEC : [id number] RECD: 08/24/25 STATUS: DONNIE PORTER NUM: [id number] ALANNAH: 08/23/25 [facility] DR: ANGELITA AGUIRRE CNM ENTERED: 08/24/25 SP TYPE: Pap Smr OT DR: ORDERED: Pap Smear Interpretation Satisfactory for evaluation. Negative for intraepithelial lesion or malignancy. No endocervical cells seen. Coccobacilli consistent with shift in vaginal zachery. Clinical Information LMP: Unknown date Previous PAP test: Unknown date/findings Other history: Cervical cancer screening Material Received ThinPrep-Vaginal/Cervical PAP Disclaimer As of August 17, 2024, the technical services to include automated prescreening performed by the ThinPrep Imaging System, PAP screening and HPV testing will be performed at [facility] (CLIA #[id number]), [address] [place] [address]. Testing for HPV was performed using the Yunior RISHI 6800 system. The presence of HPV in the female genital tract is associated with a number of diseases, including cervical carcinoma. The HPV DNA high risk pool tests for HPV 31, 33, 35, 39, 45, 51, 52, 56, 58, 59, 66 and 68. The testing for HPV 16 and 18 genotypes has also been performed. A positive result indicates detection of nucleic acid sequences from one or more subtypes, whereas a negative result indicates such sequences were not detected. All professional services are performed by [facility] ([address] [place] [address]; ; CLIA #[id number]). The PAP Test is a screening procedure with the inherent possibility of both false negative and false positive results. Results should be interpreted in the context of historic and current clinical findings. Reliability of the PAP Test is enhanced by performing the test on a regular repetitive basis. ----- ------- Signed (signature on file) JEN Larry (ASCP) 08/30/25 1316 ----- ------- END OF REPORT us Angelita DUKES LAB CYTOLOGY ORDERABLES F inal Result [facility] [address] [place] [address] [phone] from Last 3 Months Insurance [facility] 3 Care Teams Operations And Maintenance Specialist Relationship Specialty Start Date End Date Mariaa Pena MD [address] [place] [phone] PCP - General Internal Medicine 08/03/25
--- OUTSIDE RECORDS SUMMARY | 2025-10-17 14:49 | XMS_ITS | Encounter Summary ---
Author Organization [employer] Address [address] [facility] [address] [place] [address] Care Team Providers Care Construction Management Assistant Name Role Phone Mariaa Pena MD Primary Care Pro vider Encounter Details Date Type Department Care Team (Latest Contact Info) Description 10/16/2025 Travel Social History Tobacco Use Types Packs/Day [...] Info) Description 11/17/2025 3:00 PM EST Nutrition [facility] DIABETES/NUTRITION [address] [place] [address] Zita Reese, ANNA [address] [place] [address] 01/17/2026 9:00 AM EDT Office Visit [facility] MEDICINE [address] [place] [address] Mariaa Pena MD [address] [place] [address] documented as of this encounter Visit Diagnoses Not on filedocumented in this encounter Additional Health Concerns Assessment Noted Time PHQ-9 Depression Total Score: 15 025 2:27 PM EDT documented as of this encounter Care Teams Construction Management Assistant Relationship Specialty Start Date End Date Mariaa Pena MD [address] [place] [address] PCP - General Internal Medicine 08/03/25 documented as of this encounter
--- OUTSIDE RECORDS SUMMARY | 2025-10-17 14:49 | XMS_ITS | Encounter Summary ---
Author Organization [employer] Address [address] [facility] [address] [place] [address] Care Team Providers Care Repair Manager Name Role Phone Mariaa Pena MD Primary Care Pro vider Encounter Details Date Type Department Care Team (Latest Contact Info) Description 10/17/2025 Travel Social History Tobacco Use Types Packs/Day [...] Info) Description 11/17/2025 3:00 PM EST Nutrition [facility] DIABETES/NUTRITION [address] [place] [id number] [place] [address] 01/17/2026 9:00 AM EDT Office Visit [facility] MEDICINE [address] [place] [phone] Mariaa Pena MD [address] [place] [address] documented as of this encounter Visit Diagnoses Not on filedocumented in this encounter Additional Health Concerns Assessment Noted Time PHQ-9 Depression Total Score: 6 10/17/20 2:30 PM EST documented as of this encounter Care Teams Repair Manager Relationship Specialty Start Date End Date Mariaa Pena MD [address] [place] [address] PCP - General Internal Medicine 08/03/25 documented as of this encounter
--- OUTSIDE RECORDS SUMMARY | 2025-10-17 14:49 | XMS_ITS | Encounter Summary ---
Author Organization [employer] Address [address] [facility] [address] [place] [address] Care Team Providers Care Manager Mba Name Role Phone Mariaa Pena MD Primary Care Pro vider Encounter Details Date Type Department Care Team (Latest Contact Info) Description 10/03/2025 Results Follow-Up [facility]INE [address] [place], [place] [phone] Mariaa Pena MD [address] [place] [address] CBC auto differential, Comprehensive Metabolic Panel, Hemoglobin A1c, Additional followed-up results: 3 Social History Tobacco Use Types Packs/Day Years [...] as of this encounter Miscellaneous Notes * Result Encounter Note - Mariaa Huggins MD - 10/03/2025 8:50 PM EST Please call patient to advise to come to already scheduled apt with me to go over abnormal labs Thanks documented in this encounter Plan of Treatment Upcoming Encounters Date Type Department Care Team (Late st Contact Info) Description 11/17/2025 3:00 PM EST Nutrition [facility] DIABETES/NUTRITION [address] [place] [phone] [place] [address] 01/17/2026 9:00 AM EDT Office Visit [facility] [address] [place] [address] Mariaa Pena MD [address] [place] [address] documented as of this encounter Visit Diagnoses Not on filedocumented in this encounter Additional Health Concerns Assessment Noted Time PHQ-9 Depression Total Score: 15 025 2:27 PM EDT documented as of this encounter Care Teams Manager Mba Relationship Specialty Start Date End Date Mariaa Pena MD [address] [place] [id number] PCP - General Internal Medicine 08/03/25 documented as of this encounter
[2025-10-17 15:22] LABS: CT PCR Urine NOT DETECTED (Not Detect.); NG PCR Urine NOT DETECTED (Not Detect.)
== END 2025-10-17 13:40 | disposition home or self-care (01) ==
LOC: HO.HHCLNP 13:39
PROVIDERS: Visit Provider Student in an Organized Health Care Education/Training Program
DX: Z00.00 Encounter for general adult medical examination without abnormal findings (principal); Z20.2 Contact with and (suspected) exposure to infections with a predominantly sexual mode of transmission
CPT/HCPCS: 87491; 87591